=== PATIENT | male | born 1970 | race African-American/Black ===

== ENCOUNTER 2019-08-06 16:15 | Emergency (ER) | payer OTHER ==
[~2019-08-06] VITALS: Ht 185.5 cm; Wt 140.6 kg
[2019-08-06] MEDS ORDERED: LIDOCAINE 2% VISCOUS 15 ML UDC PO ONE (16:30)
[2019-08-06] MEDS ORDERED: ASPIRIN 81 MG CHEW (CHILDREN'S ASA) PO ONE (16:30)
[2019-08-06] MEDS ORDERED: ANTACID SUSP 30 ML UDC (MYLANTA) PO ONE (16:30)
--- NOTE | 2019-08-06 17:01 | Diagnostic Imaging Report ---
INDICATION: Chest pain. Portable chest at 04:45 p.m. FINDINGS: Heart size and pulmonary vascularity are normal. Lungs are clear. There are no effusions or pneumothoraces. IMPRESSION: Negative chest. Dictated by: Dictated on workstation # [id number]
--- NOTE | 2019-08-06 17:07 | ED Chest Pain ---
General Chief Complaint: Chest Pain Stated Complaint: CHEST BURNING Nursing Triage Note: PT AMB TO [facility] WITH C/O CHEST DISCOMFORT, COUGH, ET SOA. PT REPORTS CHEST DISCOMFORT BEGAN AT 0615 ON THIS DAY. PT REPORTS INTERMITTENT DISCOMFORT THAT HAS PERSISTED THROUGHOUT THIS DAY. PT REPORTS INTERMITTENT DRY COUGH FOR "A COUPLE DAYS." PT DENIES FEVER OR CHILLS. PT REPORTS X4 POSITIVE COVID-19 CASES [address] HIS WORK PLACE. A&OX4. Nursing Sepsis Screen: No Definite Risk Source: patient Exam Limitations: no limitations History of Present Illness Date Seen by Provider: Aug 06, 2019 Time Seen by Provider: 17:05 Initial Comments ER with reports of some central chest pain, cough, shortness of breath onset this morning. Has had intermittent dry cough for a couple of days. He is currently employed at [employer] in [facility] and he reports that there has been 4 confirmed cases there. However he has a history of heart failure and coronary artery disease with 2 coronary stents placed in [facility] where he used to reside. Timing/Duration: changing over time, 2-3 days Severity/Quality: moderate Location: central Radiation: no radiation Activities at Onset: none ASA po PIPE AND TEST SUPERVISOR: No NTG SL PIPE AND TEST SUPERVISOR: No Associated Symptoms: shortness of breath Allergies and Home Medications Allergies Coded Allergies: No Known Drug Allergies (Unverified , 08/06/19) Patient Home Medication List Home Medication List Reviewed: Yes Review of Systems Review of Systems Constitutional: see HPI EENTM: No Symptoms Reported Respiratory: See HPI, Cough, SOA at Rest Cardiovascular: See HPI, Chest Pain Gastrointestinal: No Symptoms Reported Genitourinary: No Symptoms Reported Musculoskeletal: no symptoms reported Skin: no symptoms reported Psychiatric/Neurological: No Symptoms Reported Endocrine: No Symptoms Reported Past Jztfryv-Ufcfdd-Mcfeiz Hx Patient Social History Recent Foreign Travel: No Contact w/Someone Who Travel: No Recent Infectious Disease Expo: No Physical Exam Vital Signs Vital Signs - First Documented Capillary Refill : Less Than 3 Seconds Height, Weight, BMI Height: '" Weight: lbs. oz. kg; 40.00 BMI Method: General Appearance: No Apparent Distress, WD/WN, Other (alert oriented speaks in full sentences no distress) Neck: Full Range of Motion, Normal Inspection Respiratory: No Accessory Muscle Use, No Respiratory Distress Cardiovascular: Regular Rate, Rhythm, Normal Peripheral Pulses Gastrointestinal: Non Tender, Soft Extremity: Normal Capillary Refill, Other (2+ pitting edema bilateral lower extremities) Neurologic/Psychiatric: Alert, Oriented x3 Skin: Normal Color, Warm/Dry Progress/Results/Core Measures Results/Orders Lab Results Laboratory Tests Test 08/06/19 16:55 Range/Units White Blood Count 6.9 4.3-11.0 10^3/uL Red Blood Count 4.67 4.35-5.85 10^6/uL Hemoglobin 14.2 13.3-17.7 G/DL Hematocrit 42 40-54 % Mean Corpuscular Volume 90 80-99 FL Mean Corpuscular Hemoglobin 30 25-34 PG Mean Corpuscular Hemoglobin Concent 34 32-36 G/DL Red Cell Distribution Width 14.8 H 10.0-14.5 % Platelet Count 284 130-400 10^3/uL Mean Platelet Volume 10.9 H 7.4-10.4 FL Neutrophils (%) (Auto) 49 42-75 % Lymphocytes (%) (Auto) 37 12-44 % Monocytes (%) (Auto) 11 0-12 % Eosinophils (%) (Auto) 3 0-10 % Basophils (%) (Auto) 1 0-10 % Neutrophils # (Auto) 3.4 1.8-7.8 X 10^3 Lymphocytes # (Auto) 2.5 1.0-4.0 X 10^3 Monocytes # (Auto) 0.7 0.0-1.0 X 10^3 Eosinophils # (Auto) 0.2 0.0-0.3 10^3/uL Basophils # (Auto) 0.0 0.0-0.1 10^3/uL Prothrombin Time 12.6 12.2-14.7 SEC INR Comment 0.9 0.8-1.4 Activated Partial Thromboplast Time 26 24-35 SEC Sodium Level 138 135-145 MMOL/L Potassium Level 3.8 3.6-5.0 MMOL/L Chloride Level 102 98-107 MMOL/L Carbon Dioxide Level 25 21-32 MMOL/L Anion Gap 11 5-14 MMOL/L Blood Urea Nitrogen 16 7-18 MG/DL Creatinine 1.24 0.60-1.30 MG/DL Estimat Glomerular Filtration Rate > 60 BUN/Creatinine Ratio 13 Glucose Level 94 70-105 MG/DL Calcium Level 9.5 8.5-10.1 MG/DL Corrected Calcium 9.3 8.5-10.1 MG/DL Magnesium Level 2.1 1.6-2.4 MG/DL Total Bilirubin 0.3 0.1-1.0 MG/DL Aspartate Amino Transf (AST/SGOT) 21 5-34 U/L Alanine Aminotransferase (ALT/SGPT) 20 0-55 U/L Alkaline Phosphatase 86 40-136 U/L Myoglobin 39.9 10.0-92.0 NG/ML Troponin I < 0.028 <0.028 NG/ML B-Type Natriuretic Peptide 66.4 <100.0 PG/ML Total Protein 7.7 6.4-8.2 GM/DL Albumin 4.3 3.2-4.5 GM/DL Lipase 22 8-78 U/L My Orders Orders - JENNIFER BREWER APRN Cbc With Automated Diff (08/06/19 16:23) Magnesium (08/06/19 16:23) Chest 1 View, Ap/Pa Only (08/06/19 16:23) Ekg Tracing (08/06/19 16:) Comprehensive Metabolic Panel (08/06/19 16:) Myoglobin Serum (08/06/19 16:23) Protime With Inr (08/06/19 16:) Partial Thromboplastin Time (08/06/19 16:23) O2 (08/06/19 16:) Monitor-Rhythm Ecg Trace Only (08/06/19 16:) Lipid Panel (08/07/19 06:00) Ed Iv/Invasive Line Start (08/06/19 16:) Lipase (08/06/19 16:23) BNP (08/06/19 16:23) Troponin I (08/06/19 16:23) Antacid Suspension (Mylanta Suspension (08/06/19 16:30) Lidocaine 2% Viscous 15 Ml (Xylocaine Vi (08/06/19 16:30) Aspirin Chewable Tablet (Baby Aspirin Ch (08/06/19 16:30) Coronavirus Sars-Cov-2 So 2018 (08/06/19 17:08) Troponin I (08/06/19 18:55) Medications Given in ED Current Medications Medications Dose Ordered Sig/Jose Route Start Time Stop Time Status Last Admin Dose Admin Al Hydrox/Mg Hydrox/Simethicone 30 ml ONCE ONCE PO 08/06/19 16:30 08/06/19 16:31 DC 08/06/19 16:45 30 ML Aspirin 324 mg ONCE ONCE PO 08/06/19 16:30 08/06/19 16:31 DC 08/06/19 16:45 324 MG Lidocaine HCl 10 ml ONCE ONCE PO 08/06/19 16:30 08/06/19 16:31 DC 08/06/19 16:45 10 ML Vital Signs/I&O 08/06/19 08/06/19 16:15 16:15 Temp 37.1 Pulse 61 Resp 18 B/P (MAP) 144/96 (112) Pulse Ox 99 O2 Delivery Room Air Room Air Blood Pressure Mean: 112 Departure Impression Primary Impression: Chest pain Qualified Codes: R07.9 - Chest pain, unspecified Additional Impression: Shortness of breath Disposition: 01 HOME, SELF-CARE Condition: Stable Departure-Patient Inst. Decision time for Depature: 17:43 Referrals: [facility]ACA [facility] Dolores GONSALVES MD, BASHAR J MD Patient Instructions: Chest Pain (DC), Coronavirus Disease 2019 (COVID-19) Add. Discharge Instructions: All discharge instructions reviewed with patient and/or family. Voiced understanding. 1. 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 Start the new blood pressure medication that was prescribed it is also a diuretic. Your Covid 19 results should be back within the next 24-48 hours. You should go home and quarantine herself away from family and friends until that is resulted. Scripts Hydrochlorothiazide (Hydrochlorothiazide) 12.5 Mg Tablet 12.5 MG PO DAILY, #30 TAB Prov: JENNIFER BREWER APRN 08/06/19 Work/School Note: Work Release Form Date Seen in the Emergency Department: Aug 06, 2019 Return to Work: Aug 09, 2019 JENNIFER BREWER APRN Aug 06, 2019 17:07
[2019-08-06 17:09] LABS: BASOPHILS % (AUTO) 1 % (0-10); EOSINOPHILS # (AUTO) 0.2 10^3/uL (0.0-0.3); EOSINOPHILS % (AUTO) 3 % (0-10); HEMATOCRIT 42 % (40-54); HEMOGLOBIN 14.2 G/DL (13.3-17.7); LYMPHOCYTES # (AUTO) 2.5 X 10^3 (1.0-4.0); LYMPHOCYTES % (AUTO) 37 % (12-44); MEAN CORPUSCULAR HEMOGLOBIN 30 PG (25-34); MEAN CORPUSCULAR HGB CONC 34 G/DL (32-36); MEAN CORPUSCULAR VOLUME 90 FL (80-99); MEAN PLATELET VOLUME 10.9 FL (7.4-10.4); MONOCYTES # (AUTO) 0.7 X 10^3 (0.0-1.0); MONOCYTES % (AUTO) 11 % (0-12); NEUTROPHILS # (AUTO) 3.4 X 10^3 (1.8-7.8); NEUTROPHILS % (AUTO) 49 % (42-75); PLATELET COUNT 284 10^3/uL (130-400); RED CELL DISTRIBUTION WIDTH 14.8 % (10.0-14.5); WHITE BLOOD COUNT 6.9 10^3/uL (4.3-11.0)
[2019-08-06 17:24] LABS: INR 0.9 (0.8-1.4); PROTHROMBIN TIME PATIENT 12.6 SEC (12.2-14.7)
[2019-08-06 17:32] LABS: ALANINE AMINOTRANSFERASE 20 U/L (0-55); ALBUMIN 4.3 GM/DL (3.2-4.5); ALKALINE PHOSPHATASE 86 U/L (40-136); BILIRUBIN,TOTAL 0.3 MG/DL (0.1-1.0); BUN/CREATININE RATIO 13; CALCIUM 9.5 MG/DL (8.5-10.1); CARBON DIOXIDE 25 MMOL/L (21-32); CHLORIDE 102 MMOL/L (98-107); CREATININE SERUM 1.24 MG/DL (0.60-1.30); GFR ESTIMATED > 60; GLUCOSE 94 MG/DL (70-105); LIPASE 22 U/L (8-78); MAGNESIUM 2.1 MG/DL (1.6-2.4); POTASSIUM 3.8 MMOL/L (3.6-5.0); SODIUM 138 MMOL/L (135-145); TOTAL PROTEIN 7.7 GM/DL (6.4-8.2)
--- NOTE | 2019-08-06 17:40 | NUR ---
COVID-19 SWAB OBTAINED ET WALKED TO LAB BY CYRIL REYNOLDS.
[2019-08-06] MEDS ORDERED: HYDR12.56 PO (17:44)
[2019-08-06 17:45] VITALS: BP 154/92
--- NOTE | 2019-08-06 18:55 | NUR ---
REPEAT TROPONIN DRAWN FROM IV SITE. SPECIMEN WALKED TO LAB BY CYRIL REYNOLDS.
[2019-08-06 19:37] VITALS: BP 146/89
--- OUTSIDE RECORDS SUMMARY | 2019-08-06 20:34 | XMS REPORT | Continuity of Care Document ---
Demographics Preferred Language Unknown Marital Status Unknown Restorationist Affiliation Unknown Race Unknown Ethnic Group Unknown Author Organization Unknown Address Unknown Phone Unavailable Allergies There is no data. Medications There is no data. Problems There is no data. Procedures There is no data. Results Test Result Range Complete blood count (CBC) with automate d white blood cell (WBC) differential - 08/06/19 16:55 Blood leukocytes automated count (number/volume) 6.9 10*3/uL 4.3-11.0 Blood erythrocytes automated count (number/volume) 4.67 10*6/uL 4.35-5.85 Venous blood hemoglobin measurement (mass/volume) 14.2 g/dL 13.3-17.7 Blood hematocrit (volume fraction) 42 % 40-54 Automated erythrocyte mean corpuscular volume 90 [ foz_us] 80-99 Automated erythrocyte mean corpuscular h emoglobin (mass per erythrocyte) 30 pg 25-34 Automated erythrocyte mean corpuscular h emoglobin concentration measurement (mass/volume) 34 g/dL 32-36 Automated erythrocyte distribution width ratio 14. 8 % 10.0- 14.5 Automated blood platelet count (count/volume) 284 10*3/uL 130-400 Automated blood platelet mean volume measurement 10.9 [foz_us] 7.4-10.4 Automated blood neutrophils/100 leukocytes 49 % 42-75 Automated blood lymphocytes/100 leukocytes 37 % 12-44 Blood monocytes/100 leukocytes 11 % 0-12 Automated blood eosinophils/100 leukocytes 3 % 0-10 Automated blood basophils/100 leukocytes 1 % 0-10 Blood neutrophils automated count (number/volume) 3.4 10*3 1.8-7.8 Blood lymphocytes automated count (number/volume) 2.5 10*3 1.0-4.0 Blood monocytes automated count (number/volume) 0. 7 10*3 0.0-1.0 Automated eosinophil count 0.2 10*3/uL 0 .0-0.3 Automated blood basophil count (count/volume) 0.0 10*3/uL 0.0-0.1 PT panel in platelet poor plasma by coag ulation assay - 08/06/19 16:55 Prothrombin time (PT) in platelet poor plasma by coagu lation assay 12.6 s 12.2-14.7 INR in platelet poor plasma or blood by coagulation as say 0.9 0.8-1.4 Activated partial thromboplastin time (a PTT) in platelet poor plasma bycoagulation assay - 08/06/19 16:55 Activated partial thromboplastin time (a PTT) in platelet poor plasma bycoagulation assay 26 s 24-35 Comprehensive metabolic panel - 08/06/19 16:55 Serum or plasma sodium measurement (moles/volume) 138 mmol/L 135-145 Serum or plasma potassium measurement (moles/volume) 3.8 mmol/L 3.6-5.0 Serum or plasma chloride measurement (moles/volume) 102 mmol/L 98-107 Carbon dioxide 25 mmol/L 21-32 Serum or plasma anion gap determination (moles/volume) 11 mmol/L 5-14 Serum or plasma urea nitrogen measurement (mass/volume ) 16 mg/dL 7-18 Serum or plasma creatinine measurement (mass/volume) 1.24 mg/dL 0.60-1.30 Serum or plasma urea nitrogen/creatinine mass ratio 13 NRG Serum or plasma creatinine measurement w ith calculation of estimated glomerular filtration rate > NRG Serum or plasma glucose measurement (mass/volume) 94 mg/dL 70-105 Serum or plasma calcium measurement (mass/volume) 9.5 mg/dL 8.5-10.1 Serum or plasma total bilirubin measurement (mass/volu me) 0.3 mg/dL 0.1-1.0 Serum or plasma alkaline phosphatase hyacinth surement (enzymatic activity/volume) 86 U/L 40-136 Serum or plasma aspartate aminotransfera se measurement (enzymatic activity/volume) 21 U/L 5-34 Serum or plasma alanine aminotransferase measurement (enzymatic activity/volume) 20 U/L 0-55 Serum or plasma protein measurement (mass/volume) 7.7 g/dL 6.4-8.2 Serum or plasma albumin measurement (mass/volume) 4.3 g/dL 3.2-4.5 CALCIUM CORRECTED 9.3 mg/dL 8.5-10.1 Magnesium - 08/06/19 16:55 Magnesium 2.1 mg/dL 1.6-2.4 Myoglobin, serum - 08/06/19 16:55 Myoglobin, serum 39.9 ng/mL 10.0-92.0 Lipase - 08/06/19 16:55 Lipase 22 U/L 8-78 Serum or plasma troponin i.cardiac measu rement (mass/volume) - 08/06/19 16:55 Serum or plasma troponin i.cardiac measurement (mass/v olume) < ng/mL <0.028 Serum or plasma lithium measurement (mol es/volume) - 08/06/19 16:55 BNP PT 66.4 pg/mL <100.0 Serum or plasma troponin i.cardiac measu rement (mass/volume) - 08/06/19 18:55 Serum or plasma troponin i.cardiac measurement (mass/v olume) < ng/mL <0.028 Encounters ACCT No. Visit Date/Time Discharge Status Pt. Type Provider Facility Loc./Unit Complaint [id number] 08/06/2019 17:10:00 Document Registration
== END 2019-08-06 19:38 | disposition home or self-care (01) ==
LOC: ER 16:18
DX: R07.89 Other chest pain (principal); R06.02 Shortness of breath; I50.9 Heart failure, unspecified; Z95.5 Presence of coronary angioplasty implant and graft; Z20.828 Contact with and (suspected) exposure to other viral communicable diseases
CPT/HCPCS: 71045; 80053; 83690; 83735; 83874; 83880; 84484; 85025; 85610; 85730; 93005; 99284; U0002; 36415; 87635

== ENCOUNTER 2021-11-19 09:43 | Outpatient (RCR) | payer OTHER ==
[~2021-11-19 09:43] MED LIST: HYDR12.56 PO
== END 2021-11-20 | disposition home or self-care (01) ==
PROVIDERS: ATTEND Orthopaedic Surgery
DX: Z47.1 Aftercare following joint replacement surgery (principal); Z96.651 Presence of right artificial knee joint

== ENCOUNTER 2021-12-16 10:34 | Outpatient (RCR) | payer OTHER | END 2021-12-21 | disposition home or self-care (01) | PROVIDERS: ATTEND Orthopaedic Surgery | DX: Z47.1 Aftercare following joint replacement surgery (principal); Z96.651 Presence of right artificial knee joint ==

== ENCOUNTER 2022-04-16 11:03 | Outpatient (RCR) | payer OTHER | END 2022-04-20 | disposition home or self-care (01) | PROVIDERS: ATTEND Orthopaedic Surgery | DX: Z47.1 Aftercare following joint replacement surgery (principal); Z96.651 Presence of right artificial knee joint ==